=== PATIENT | female | born 1935 | race Caucasian/White ===

== ENCOUNTER 2016-07-19 12:44 | Emergency (ER) | payer MEDICARE ==
[~2016-07-19 12:44] MED LIST: DILANT PO; HEART MEDICATION PO; IBU400 PO; LOP25 PO; METHOC500B PO; PB30 PO; POTASSIUM PO
== END 2016-07-19 13:38 | disposition home or self-care (01) ==
LOC: ER 12:44
DX: S61.012A Laceration without foreign body of left thumb without damage to nail, initial encounter (principal); M79.671 Pain in right foot; I10 Essential (primary) hypertension; Z88.0 Allergy status to penicillin; Z88.1 Allergy status to other antibiotic agents; Z88.5 Allergy status to narcotic agent; Z88.4 Allergy status to anesthetic agent; Z88.8 Allergy status to other drugs, medicaments and biological substances; Y28.9XXA Contact with unspecified sharp object, undetermined intent, initial encounter
CPT/HCPCS: 73630-RT; 90471; 90714; 99284; A9270-GY